=== PATIENT | female | born 1985 | race African-American/Black ===

== ENCOUNTER 2022-10-05 10:27 | Emergency (ER) | payer MEDICARE ==
[~2022-10-05] VITALS: Ht 167.6 cm; Wt 103.4 kg
[2022-10-05] MEDS ORDERED: Morphine 4mg INJECTION 4 MG/ML INJ IV STA ×2 (11:40→11:59)
[2022-10-05] MEDS ORDERED: HYDROCODON-ACE1 EAC9 PO ×2 (11:44→11:46)
[2022-10-05] MEDS ORDERED: LEVOFLOXACIN500 MG PO (11:44)
[2022-10-05] MEDS ORDERED: ONDANSETRON ODT4 MG PO (11:44)
[2022-10-05] MEDS ORDERED: ONDANSETRON HCL INJ 2MG/ML 2ML 2 MG/ML VIAL IV ONE (11:45)
[2022-10-05] MEDS ORDERED: CEFTRIAXONE 1 GM VIAL IV ONE (11:45)
[2022-10-05] MEDS ORDERED: Morphine 4mg INJECTION 4 MG/ML INJ ONE (12:01)
[2022-10-05] MEDS ORDERED: ONDANSETRON HCL INJ 2MG/ML 2ML 2 MG/ML VIAL ONE (12:01)
[2022-10-05] MEDS ORDERED: CEFTRIAXONE 1 GM VIAL ONE (12:01)
[2022-10-05] MEDS ORDERED: CEFDINIR300 MG PO (12:35)
[2022-10-05 12:44] VITALS: BP 120/62
== END 2022-10-05 12:46 | disposition home or self-care (01) ==
LOC: FSED 10:43
DX: R06.02 Shortness of breath (principal); R07.9 Chest pain, unspecified; G89.3 Neoplasm related pain (acute) (chronic); R94.31 Abnormal electrocardiogram [ECG] [EKG]; Z85.3 Personal history of malignant neoplasm of breast
CPT/HCPCS: 71046; 80053; 81003; 82553; 84484; 85025; 93005; 99284; J0696; J2270; J2405